=== PATIENT | male | born 1955 | race Caucasian/White ===

== ENCOUNTER 2016-12-05 07:04 | Day surgery (SDC) | payer BC ==
[~2016-12-05] VITALS: Ht 188 cm; Wt 153.0 kg
[~2016-12-05 07:04] MED LIST: ASPI325T PO; ATOR40TA64 PO; LIDOCAINE 1% (10mg/ml) 2ml SDV INJ ONE; LOSA100T44 PO; LR 1,000 ML IV SCH; METO50TA5 PO
--- OUTSIDE RECORDS SUMMARY | 2016-12-05 07:08 | XMS REPORT | Referral Summary ---
Author Author [facility] Organization [facility] Address Unknown Phone Unavailable Care Team Providers Care Pathologist Assistant Name Role Phone Milla Miller Primary Care Physician [phone] Encounter [facility] [id number] Date(s): 09/24/16 - 09/24/16 [facility] [address] [place] [id number] Discharge Diagnosis: Encounter for well adult exam with abnormal findings Discharge Diagnosis: Prostate cancer screening Discharge Diagnosis: Benign hypertension Discharge Diagnosis: CAD (coronary artery disease) Discharge Diagnosis: Hypercholesterolemia Discharge Diagnosis: Morbid obesity Discharge Disposition: 01-Home or Self Care Attending Physician: Keiko Garcia APRN Admitting Physician: Keiko Garcia APRN Vital Signs Most recent to 1 oldest [Reference Range]: Temperature Tympanic 36.6 degC [36.6-38.1 degC] (09/24/16 7:59 AM) Peripheral Pulse 68 bpm Rate [60-100 bpm] (09/24/16 7:59 AM) Blood Pressure 128/72 mmHg [90-140/60-90 mmHg] (09/24/16 7:59 AM) Problem List Condition Effective Dates Status Health Status Informant Ascending aorta Active dilation(Confirmed) Hypercholesterolemia Active (Confirmed) Morbid Active obesity(Confirmed) Encounter for well Active adult exam with abnormal findings(Confirmed) Allergies, Adverse Reactions, Alerts No Known Medication Allergies Medications aspirin 325 mg, Oral, Daily, 0 Refill(s) Start Date: 05/09/14 Status: Ordered atorvastatin 40 mg oral tablet 40 mg 1 tabs, Oral, Daily, # 90 tabs, 3 Refill(s), Pharmacy: [id number], 1 tabs Oral Daily Start Date: 09/24/16 Status: Ordered losartan 100 mg oral tablet 100 mg 1 tabs, Oral, Daily, # 90 tabs, 3 Refill(s), Pharmacy: [facility] [id number], 1 tabs Oral Daily Start Date: 09/24/16 Status: Ordered Metoprolol Tartrate 50 mg oral tablet 50 mg 1 tabs, Oral, BID, # 180 tabs, 3 Refill(s), Pharmacy: [facility] [id number], 1 tabs Oral BID Start Date: 09/24/16 Status: Ordered Results Chemistry Most recent to 1 oldest [Reference Range]: Sodium Lvl [135-144 140 mEq/L mEq/L] (09/24/16 8:45 AM) Potassium Lvl 4.9 mEq/L [3.5-5.2 mEq/L] (09/24/16 8:45 AM) Chloride [99-111 107 mEq/L mEq/L] (09/24/16 8:45 AM) CO2 [23-31 mEq/L] 26 mEq/L (09/24/16 8:45 AM) AGAP [3-20] 7 (09/24/16 8:45 AM) BUN [8-26 mg/dL] 22 mg/dL (09/24/16 8:45 AM) Glucose Lvl [70-99 98 mg/dL mg/dL] (09/24/16 8:45 AM) Creatinine Lvl 1.49 mg/dL [0.72-1.25 mg/dL] *HI* (09/24/16 8:45 AM) eGFR [>60 mL/min] 48 mL/min 1 *ABN* (09/24/16 8:45 AM) Calcium Lvl 9.4 mg/dL 2 [8.4-10.2 mg/dL] (09/24/16 8:45 AM) Albumin Lvl [3.4-4.8 4.3 gm/dL gm/dL] (09/24/16 8:45 AM) Total Protein 7.3 gm/dL [6.0-7.6 gm/dL] (09/24/16 8:45 AM) Globulin [1.8-4.0 3.0 gm/dL gm/dL] (09/24/16 8:45 AM) ALT [0-55 U/L] 57 U/L *HI* (09/24/16 8:45 AM) AST [5-34 U/L] 34 U/L (09/24/16 8:45 AM) Alk Phos [40-150 57 U/L U/L] (09/24/16 8:45 AM) Bili Total [0.2-1.2 0.7 mg/dL mg/dL] (09/24/16 8:45 AM) PSA (wihout Reflex 0.4 ng/mL 3 Free) [0.0-4.5 (09/24/16 8:45 AM) ng/mL] Chol [0-199 mg/dL] 191 mg/dL (09/24/16 8:45 AM) Trig [0-149 mg/dL] 74 mg/dL (09/24/16 8:45 AM) HDL [40-84 mg/dL] 45 mg/dL (09/24/16 8:45 AM) LDL [0-130 mg/dL] 131 mg/dL *HI* (09/24/16 8:45 AM) VLDL Cholesterol 15 mg/dL [0-28 mg/dL] (09/24/16 8:45 AM) Cardiac Risk 4.2 [0.0-5.7] (09/24/16 8:45 AM) Hgb A1c [4.1-5.6 %] 5.6 % (09/24/16 8:45 AM) eAvg Glucose 114.0 mg/dL (09/24/16 8:45 AM) 1Result Comment: Multiply eGFR results by 1.21 for race. 2Result Comment: Please note reference range change effective 09/19/2016. 3Result Comment: AUA PSA Best Practice Guidelines: Age-Adjusted PSA Values by Ethnic Group Age Range Asians - Caucasians Americans 40-49 0-2.0 0-2.0 0-2.5 50-59 0-3.0 0-4.0 0-3.5 60-69 0-4.0 0-4.5 0-4.5 70-79 0-5.0 0-5.5 0-6.5 Immunizations Given and Recorded Vaccine Date Status Refusal Reason tetanus/diphth/pertuss (Tdap) adult/adol 05/09/14 Given pneumococcal 23-polyvalent vaccine 09/24/16 Given Procedures Procedure Date Related Diagnosis Body Site Collection of venous blood by venipuncture 09/24/16 Cardiac catheterization1 2011 S/P ORIF (open reduction internal fixation) fracture 140-50% disease. No stents or angio. Social History Social History Type Response Smoking Status Former smoker; Type: Cigarettes; Started at age: 18; Stopped at age: 24 Assessment and Plan Extracted from: Title: Office Visit Note-WME/med ck Author: Keiko Garcia APRN Date: 09/24/16 Assessment/Plan 1.Encounter for well adult exam with abnormal findings Discussed general health maintenance and disease prevention. Pneumococcal vaccine given today. Labs as ordered. Encourage a healthy diet and decreasing portions. Recommend appointment with Dr. Chow to discuss pros and cons of colonoscopy. Ordered: Comprehensive Metabolic Panel Hemoglobin A1c Lipid Panel Prostate Specific Antigen 2.Benign hypertension Stable. Continue same. Continue to monitor blood pressure outside the office. Goal blood pressures less than 140/90. Plan follow-up in 6 months or sooner if medical needs arise. Plan CMP prior to next visit. Ordered: Comprehensive Metabolic Panel 3.CAD (coronary artery disease) Continue to follow with Dr. Villalba as recommended. Continue statinand aspirin. 4.Hypercholesterolemia Continue statin and aspirin. Lipids today. Ordered: Lipid Panel 5.Morbid obesity Encourage healthy diet. Screen for diabetes. Ordered: Hemoglobin A1c 6.Prostate cancer screening Prostate exam normal. Encourage patient to drink less fluids in the evening which will help with nocturia. It does not let us know. Ordered: Prostate Specific Antigen Need for pneumococcal vaccination
--- OUTSIDE RECORDS SUMMARY | 2016-12-05 07:08 | XMS REPORT | Referral Summary ---
Author Author [facility] Organization [facility] Address Unknown Phone Unavailable Care Team Providers Care Customer Response Representative Name Role Phone No PCP, States Primary Care Physician [phone] Encounter Date(s): 05/30/15 - 05/30/15 [facility] [address] [place] [address] Discharge Diagnosis: Morbid obesity Discharge Diagnosis: Coronary artery disease Discharge Diagnosis: Benign hypertension Discharge Diagnosis: Hypercholesterolemia Discharge Disposition: 01-Home or Self Care Attending Physician: Keiko Garcia APRN Admitting Physician: Keiko Garcia APRN Vital Signs Most recent to 1 oldest [Reference Range]: Temperature Tympanic 37 degC [36.6-38.1 degC] (05/30/15 1:41 PM) Peripheral Pulse 64 bpm Rate [60-100 bpm] (05/30/15 1:41 PM) Blood Pressure 122/86 mmHg [90-140/60-90 mmHg] (05/30/15 1:41 PM) Problem List Condition Effective Dates Status Health Status Informant Hypercholesterolemia Active (Confirmed) Morbid Active patient obesity(Confirmed) Allergies, Adverse Reactions, Alerts No Known Medication Allergies Medications aspirin 325 mg, Oral, Daily, 0 Refill(s) Start Date: 05/09/14 Status: Ordered atorvastatin 40 mg oral tablet 40 mg 1 tabs, Oral, Bedtime (once a day), # 90 tabs, 3 Refill(s), Pharmacy: [facility], 1 tabs Oral Bedtime (once a day) Start Date: 11/14/15 Status: Ordered losartan 100 mg oral tablet 100 mg 1 tabs, Oral, Daily, # 90 tabs, 3 Refill(s), Pharmacy: [facility], 1 tabs Oral Daily Start Date: 11/14/15 Status: Ordered Metoprolol Tartrate 50 mg oral tablet See Instructions, 1 TABS ORAL BID,X90 DAYS, # 180 tabs, 3 Refill(s), Pharmacy: [facility], 1 TABS ORAL BID,X90 DAYS Start Date: 11/14/15 Status: Ordered Results No data available for this section Immunizations Vaccine Date Refusal Reason tetanus/diphth/pertuss (Tdap) adult/adol 05/09/14 Procedures Procedure Date Related Diagnosis Body Site Cardiac catheterization1 2011 S/P ORIF (open reduction internal fixation) fracture 140-50% disease. No stents or angio. Social History Social History Type Response Smoking Status Former smoker; Type: Cigarettes; Started at age: 18; Stopped at age: 24 Assessment and Plan Extracted from: Title: Office Visit Note-CDM Author: Keiko Garcia APRN Date: Assessment/Plan 1.Benign hypertension Cont same. Lab another day fasting. We'll notify him of results and any medication changes. Discussed with patient scheduling colonoscopy for screening for colon cancer. He will consider and check with insurance coverage. Does not want set that up today. Will get flu shot at work. Not interested in Pneumovax Ordered: Office Visit Level 4 Est 84304 2.Coronary artery disease Recommend follow-up with cardiology as it is been a number of years. Appointment made with Dr. Villalba. Ordered: Office Visit Level 4 Est 21023 Hypercholesterolemia Fasting lipids and other day. Ordered: Office Visit Level 4 Est 65298 Morbid obesity Encourage healthy eating and exercise. Recommend 5 pound weight loss per month. Ordered: Office Visit Level 4 Est 16276 Orders: atorvastatin, 40 mg 1 tabs, Oral, Daily, # 90 tabs, 0 Refill(s), [id number], 1 tabs Oral Daily,x90 days lisinopril, 5 mg 1 tabs, Oral, Daily, # 90 tabs, 0 Refill(s), Pharmacy: [facility] 43801, 1 tabs Oral Daily,x90 days metoprolol, 50 mg 1 tabs, Oral, BID, # 180 tabs, 0 Refill(s), Pharmacy: [facility] 78406, 1 tabs Oral BID,x90 days
--- OUTSIDE RECORDS SUMMARY | 2016-12-05 07:08 | XMS REPORT | Referral Summary ---
Author Author [facility] Organization [facility] Address Unknown Phone Unavailable Care Team Providers Care Band Sawmill Operator Name Role Phone Tiffanie Cr Primary Care Physician [phone] Encounter Date(s): 05/30/15 - 05/30/15 [facility] [address] [place] [address] Discharge Diagnosis: Morbid obesity Discharge Diagnosis: Coronary artery disease Discharge Diagnosis: Benign hypertension Discharge Diagnosis: Hypercholesterolemia Discharge Disposition: 01-Home or Self Care Attending Physician: Keiko Garcia APRN Admitting Physician: eKiko Garcia APRN Vital Signs Most recent to [...] Daily, # 90 tabs, 0 Refill(s), Pharmacy: [facility] 96391, 1 tabs Oral Daily,x90 days Start Date: 05/30/15 Stop Date: 08/28/15 Status: Ordered lisinopril 5 mg oral tablet 5 mg 1 tabs, Oral, Daily, # 90 tabs, 0 Refill(s), Pharmacy: [facility] 78442, 1 tabs Oral Daily,x90 days Start Date: 05/30/15 Stop Date: 08/28/15 Status: Ordered Metoprolol Tartrate 50 mg oral tablet 50 mg 1 tabs, Oral, BID, # 180 tabs, 0 Refill(s), Pharmacy: [facility] 69790, 1 tabs Oral BID,x90 days Start Date: 05/30/15 Stop Date: 08/28/15 Status: Ordered Results No data available for [...] Pneumovax Ordered: Office Visit Level 4 Est 82480 2.Coronary artery disease Recommend follow-up with cardiology as it is been a number of years. Appointment made with Dr. Villalba. Ordered: Office Visit Level 4 Est 75486 Hypercholesterolemia Fasting lipids and other day. Ordered: Office Visit Level 4 Est 73338 Morbid obesity Encourage healthy eating and exercise. Recommend 5 pound weight loss per month. Ordered: Office Visit Level 4 Est 25225 Orders: atorvastatin, 40 mg 1 tabs, Oral, Daily, # 90 tabs, 0 Refill(s), Pharmacy: [facility] [id number], 1 tabs Oral Daily,x90 days lisinopril, 5 mg 1 tabs, Oral, Daily, # 90 tabs, 0 Refill(s), Pharmacy: [facility] 48125, 1 tabs Oral Daily,x90 days metoprolol, 50 mg 1 tabs, Oral, BID, # 180 tabs, 0 Refill(s), Pharmacy: [facility] 49030, 1 tabs Oral BID,x90 days
--- OUTSIDE RECORDS SUMMARY | 2016-12-05 07:08 | XMS REPORT | Referral Summary ---
Author Author [facility] Organization [facility] Address Unknown Phone Unavailable Care Team Providers Care Optical Manager Name Role Phone Tiffanie Cr Primary Care Physician [phone] Encounter Date(s): 07/25/15 - 07/25/15 [facility] [address] [place] [address] [place] [address] [place] Discharge Diagnosis: Old WI (myocardial infarction) Discharge Diagnosis: Obesity Discharge Diagnosis: Coronary heart disease Discharge Diagnosis: Sleep apnea in adult Discharge Diagnosis: Chronic kidney disease (CKD) stage G2/A1, mildly decreased glomerular filtration rate (GFR) between 60-89 mL/min/1.73 square meter and albuminuria creatinine ratio less than 30 mg/g Discharge Diagnosis: Essential hypertension Discharge Disposition: 01-Home or Self Care Attending Physician: Nabeel Villalba MD Admitting Physician: Nabeel Villalba MD Referring Physician: Keiko Garcia APRN Vital Signs Most recent to 1 oldest [Reference Range]: Peripheral Pulse 60 bpm Rate [60-100 bpm] (07/25/15 2:32 PM) Blood Pressure 144/96 mmHg [90-140/60-90 mmHg] *HI* (07/25/15 2:32 PM) Problem List Condition Effective Dates Status Health Status Informant Hypercholesterolemia Active (Confirmed) Morbid Active patient obesity(Confirmed) Allergies, Adverse Reactions, Alerts No Known Medication Allergies Medications aspirin 325 mg, Oral, Daily, 0 Refill(s) Start Date: 05/09/14 Status: Ordered atorvastatin 40 mg oral tablet 40 mg 1 tabs, Oral, Daily, # 90 tabs, 0 Refill(s), Pharmacy: [facility] [address]8572, 1 tabs Oral Daily,x90 days Start Date: 05/30/15 Stop Date: 08/28/15 Status: Ordered lisinopril 10 mg oral tablet 10 mg 1 tabs, Oral, Daily, # 90 tabs, 4 Refill(s), Pharmacy: [facility] 73437, 1 tabs Oral Daily Start Date: 07/25/15 Status: Ordered Metoprolol Tartrate 50 mg oral tablet 50 mg 1 tabs, Oral, BID, # 180 tabs, 0 Refill(s), Pharmacy: [facility] 72328, 1 tabs Oral BID,x90 days Start Date: 05/30/15 Stop Date: 08/28/15 Status: Ordered Results No data available for this section Immunizations Vaccine Date Refusal Reason tetanus/diphth/pertuss (Tdap) adult/adol 05/09/14 Procedures Procedure Date Related Diagnosis Body Site Cardiac catheterization2011 S/P ORIF (open reduction internal fixation) fracture 140-50% disease. No stents or angio. Social History Social History Type Response Smoking Status Former smoker; Type: Cigarettes; Started at age: 18; Stopped at age: 24 Assessment and Plan No data available for this section
--- OUTSIDE RECORDS SUMMARY | 2016-12-05 07:08 | XMS REPORT | Referral Summary ---
Author Author [facility] Organization [facility] Address Unknown Phone Unavailable Care Team Providers Care Survey Data Technician Name Role Phone No PCP, States Primary Care Physician [phone] Encounter [facility] [id number] Date(s): 11/14/15 - 11/14/15 [facility] [address] [place] [address] [place] [address] Discharge Diagnosis: Ascending aorta dilation Discharge Diagnosis: Hypercholesteremia Discharge Diagnosis: Essential hypertension Discharge Diagnosis: Coronary heart disease Discharge Disposition: -Home or Self Care Attending Physician: Nabeel Villalba MD Admitting Physician: Nabeel Villalba MD Referring Physician: Grady Cr MD Vital Signs Most recent to 1 oldest [Reference Range]: Peripheral Pulse 64 bpm Rate [60-100 bpm] (11/14/15 2:37 PM) Blood Pressure 134/82 mmHg [90-140/60-90 mmHg] (11/14/15 2:37 PM) Problem List Condition Effective Dates Status Health Status Informant Hypercholesterolemia Active (Confirmed) Morbid Active patient obesity(Confirmed) Allergies, Adverse Reactions, Alerts No Known Medication Allergies Medications aspirin 325 mg, Oral, Daily, 0 Refill(s) Start Date: 05/09/14 Status: Ordered atorvastatin 40 mg oral tablet 40 mg 1 tabs, Oral, Bedtime (once a day), # 90 tabs, 3 Refill(s), Pharmacy: [facility], 1 tabs Oral Bedtime (once a day) Start Date: 11/14/15 Status: Ordered losartan 100 mg oral tablet 100 mg 1 tabs, Oral, Daily, # 90 tabs, 3 Refill(s), Pharmacy: [facility], 1 tabs Oral Daily Start Date: 11/14/15 Status: Ordered Metoprolol Tartrate 50 mg oral tablet See Instructions, 1 TABS ORAL BID,X90 DAYS, # 180 tabs, 3 Refill(s), Pharmacy: [facility], 1 TABS ORAL BID,X90 DAYS [...] and Plan Extracted from: Title: Office Visit Note Author: Nabeel Villalba MD Date: 11/14/15 Assessment/Plan 1.Coronary heart disease Ordered: Echo, 2-D + Doppler + Color Flow Return to Clinic 2.Ascending aorta dilation Ordered: Echo, 2-D + Doppler + Color Flow Return to Clinic 3.Hypercholesteremia Ordered: Echo, 2-D + Doppler + Color Flow Return to Clinic 4.Essential hypertension Discussion: We discussed the implications of adilated somewhat aneurysmal ascending aorta. We advised him of the dimensions of the aorta and the threshold levels forgreater risk fordissection (55 mm). Since A2 receptor chris seem to be more powerful for protection of the aorta we changed his lisinopril to losartan 100 mg daily. We advised him to continue the beta chris. We encouraged him to do modest physical activity but to avoid extremes ofaerobic or isometric stress. Orders: atorvastatin, 40 mg 1 tabs, Oral, Bedtime (once a day), # 90 tabs, 3 Refill(s), Pharmacy: [facility], 1 tabs Oral Bedtime (once a day) losartan, 100 mg 1 tabs, Oral, Daily, # 90 tabs, 3 Refill(s), Pharmacy: [facility], 1 tabs Oral Daily metoprolol, See Instructions, 1 TABS ORAL BID,X90 DAYS, # 180 tabs, 3 Refill(s ), Pharmacy: [facility], 1 TABS ORAL BID,X90 DAYS Referrals to Other Providers Referred by: Nabeel Villalba MD
--- OUTSIDE RECORDS SUMMARY | 2016-12-05 07:08 | XMS REPORT | Referral Summary ---
Author Author [facility] Organization [facility] Address Unknown Phone Unavailable Care Team Providers Care It Support Technician Name Role Phone Drea Clarke Primary Care Physician [phone] Encounter [facility] [id number] Date(s): 11/05/15 - 11/05/15 [facility] [address] [place] [address] Discharge Disposition: 01-Home or Self Care Attending Physician: Nabeel Villalba MD Admitting Physician: Nabeel Villalba MD Vital Signs Most recent to 1 oldest [Reference Range]: Peripheral Pulse 64 bpm Rate [60-100 bpm] (11/05/15 11:30 AM) Blood Pressure 156/93 mmHg [90-140/60-90 mmHg] *HI* (11/05/15 11:30 AM) Problem List Condition Effective Dates Status Health Status Informant Hypercholesterolemia Active (Confirmed) Morbid Active patient obesity(Confirmed) Allergies, Adverse Reactions, Alerts No Known Medication Allergies Medications aspirin 325 mg, Oral, Daily, 0 Refill(s) Start Date: 05/09/14 Status: Ordered atorvastatin 40 mg oral tablet See Instructions, 1 TABS ORAL DAILY,X90 DAYS, # 90 tabs, 1 Refill(s), eRx: [facility] [id number], 1 TABS ORAL DAILY,X90 DAYS Start Date: 11/05/15 Status: Ordered lisinopril 10 mg oral tablet 10 mg 1 tabs, Oral, Daily, # 90 tabs, 4 Refill(s), Pharmacy: [facility] 78399, 1 tabs Oral Daily Start Date: 07/25/15 Status: Ordered Metoprolol Tartrate 50 mg oral tablet See Instructions, 1 TABS ORAL BID,X90 DAYS, # 180 tabs, eRx: [facility] [id number], 1 TABS ORAL BID,X90 DAYS Start Date: 11/05/15 Status: Ordered Results No data available for [...]
--- OUTSIDE RECORDS SUMMARY | 2016-12-05 07:08 | XMS REPORT | Referral Summary ---
Author Author [facility] Organization [facility] [place] Address Unknown Phone Unavailable Care Team Providers Care Neurology Director Name Role Phone Drea Clarke Primary Care Physician [phone] Encounter [facility] Date(s): 10/02/15 - 10/02/15 [facility] [place] [address] [place], [place] [address] Discharge Disposition: 01-Home or Self Care Attending Physician: Beni Monroe MD Admitting Physician: Beni Monroe MD Referring Physician: Nabeel Villalba MD Vital Signs No data available for this section Problem List Condition Effective Dates Status Health Status Informant Hypercholesterolemia Active (Confirmed) Morbid Active patient obesity(Confirmed) Allergies, Adverse Reactions, Alerts No Known Medication Allergies Medications aspirin 325 mg, Oral, Daily, 0 Refill(s) Start Date: 05/09/14 Status: Ordered atorvastatin 40 mg oral tablet 40 mg 1 tabs, Oral, Daily, # 90 tabs, 0 Refill(s), Pharmacy: [facility] 34173, 1 tabs Oral Daily,x90 days Start Date: 05/30/15 Stop Date: 08/28/15 Status: Ordered lisinopril 10 mg oral tablet 10 mg 1 tabs, Oral, Daily, # 90 tabs, 4 Refill(s), Pharmacy: [facility] 68615, 1 tabs Oral Daily Start Date: 07/25/15 Status: Ordered Metoprolol Tartrate 50 mg oral tablet 50 mg 1 tabs, Oral, BID, # 180 tabs, 0 Refill(s), Pharmacy: [facility] 16814, 1 tabs Oral BID,x90 days Start Date: [...]
--- OUTSIDE RECORDS SUMMARY | 2016-12-05 07:08 | XMS REPORT | Referral Summary ---
Author Author [facility] Organization [facility] Address Unknown Phone Unavailable Encounter [facility] [id number] Date(s): 06/06/16 - 06/06/16 [facility] [address] [place], [place] [address] Discharge Diagnosis: Right knee DJD Discharge Disposition: 01-Home or Self Care Attending Physician: Fer Torre MD Admitting Physician: Fer Torre MD Vital Signs Most recent to 1 oldest [Reference Range]: Respiratory Rate 18 br/min [14-20 br/min] (06/06/16 8:47 AM) Problem List Condition Effective Dates Status Health Status Informant Hypercholesterolemia Active (Confirmed) Morbid Active patient obesity(Confirmed) Allergies, Adverse Reactions, Alerts No Known Medication Allergies Medications aspirin 325 mg, Oral, Daily, 0 Refill(s) Start Date: 05/09/14 Status: Ordered atorvastatin 40 mg oral tablet See Instructions, TAKE 1 TABLET BY MOUTH DAILY, # 90 tabs, eRx: [facility] , TAKE 1 TABLET BY MOUTH DAILY Start Date: 04/22/16 Status: Ordered losartan 100 mg oral tablet 100 mg 1 tabs, Oral, Daily, # 90 tabs, 3 Refill(s), Pharmacy: [facility], 1 tabs Oral Daily Start Date: 11/14/15 Status: Ordered meloxicam 15 mg oral tablet 15 mg 1 tabs, Oral, Daily, # 30 tabs, 0 Refill(s), Pharmacy: [facility] [id number], 1 tabs Oral Daily Start Date: 06/06/16 Status: Ordered Metoprolol Tartrate 50 mg oral tablet See Instructions, TAKE 1 TABLET BY MOUTH TWICE DAILY, # 180 tabs, eRx: [facility] [id number], TAKE 1 TABLET BY MOUTH TWICE DAILY Start Date: 04/22/16 Status: Ordered Results No data available for [...]
--- OUTSIDE RECORDS SUMMARY | 2016-12-05 07:08 | XMS REPORT | Continuity of Care Document ---
Author Author [facility] Organization [facility] Address Unknown Phone Unavailable Allergies Active Description Code Type Severity Reaction Onset Reported/Identified Relationship to Patient Clinical Status Yes No Known Medication Allergies NKMA N/A N/A 05/09/2014 Medications Problems Procedures Results Test Result Range Comprehensive Metabolic Panel (CMP) - 09/24/16 08:45 Albumin 4.3 g/dL 3.4-4.8 Alkaline Phosphatase 57 U/L 40-150 ALT (SGPT) 57 U/L 0-55 Anion Gap 7 NA 3-20 AST (SGOT) 34 U/L 5-34 Bilirubin Total 0.7 mg/dL 0.2-1.2 BUN 22 mg/dL 8-26 Calcium 9.4 mg/dL 8.4-10.2 Chloride 107 mEq/L 99-111 CO2 26 mEq/L 23-31 Creatinine 1.49 mg/dL 0.72-1.25 Globulin 3.0 g/dL 1.8-4.0 Glucose 98 mg/dL 70-99 Potassium 4.9 mEq/L 3.5-5.2 Protein 7.3 g/dL 6.0-7.6 Sodium 140 mEq/L 135-144 Lipid Panel - 09/24/16 08:45 Cardiac Risk 4.2 0.0-5.7 Cholesterol 191 mg/dL 0-199 HDL Cholesterol 45 mg/dL 40-84 LDL Cholesterol 131 mg/dL 0-130 Triglycerides 74 mg/dL 0-149 VLDL Cholesterol 15 mg/dL 0-28 eGFR - 09/24/16 08:45 eGFR 48 mL/min >60 PSA - 09/24/16 08:45 PSA 0.4 ng/mL 0.0-4.5 Hemoglobin A1C - 09/24/16 08:45 Hemoglobin A1C 5.6 % 4.1-5.6 Estimated Average Glucose - 09/24/16 08:45 Estimated Average Glucose 114.0 mg/dL Encounters ACCT No. Visit Date/Time Discharge Status Pt. Type Provider Facility Loc./Unit Complaint [id number] 11/19/2016 14:02:00 2016 23:59:00 DIS Outpatient Nabeel Villalba [facility] New Card 1 year chiqui [id number] 10/22/2016 13:49:00 2016 23:59:00 DIS Outpatient Nestor Man [facility] New Surg CONSULT FOR COLONOSCOPY PER ASHLEY [id number] 09/24/2016 07:33:00 2016 23:59:00 DIS Outpatient Ashley Garcia [facility] New MED CK [id number] 06/06/2016 08:16:00 2015 23:59:00 DIS Outpatient Fer Torre [facility] FC Ortho TCPA RT KNEE PAIN/SWELLING [id number] 11/14/2015 14:01:00 2015 23:59:00 DIS Outpatient Nabeel Villalba [facility] New Card FOLLOW UP AFTER EDITA AND O2 MONITOR [id number] 11/05/2015 10:17:00 2015 23:59:00 DIS Outpatient Nabeel Villalba [facility] Mur Card EDITA VILLALBA 149KG 187CM [id number] 10/02/2015 14:23:00 2015 23:59:00 DIS Outpatient Beni Monroe [facility] Sleep CP DR VILLALBA REF G47.33 [id number] 07/25/2015 14:27:00 2014 23:59:00 DIS Outpatient Nabeel Villalba [facility] New Card MPV/GET EST/CAD/WILLIAM [id number] 07/25/2015 12:39:00 ACT Outpatient Nabeel Villalba [facility] Mur Card ekg E78.2 mariluz
[2016-12-05 07:26] VITALS: BP 130/70; PULSE 58; RESP 15; TEMP 98; O2SAT 93; Ht 188 cm; Wt 153.0 kg
[2016-12-05 08:02] VITALS: PULSE 57
--- NOTE | 2016-12-05 08:52 | ANESPREOP ---
Anesthesia Record Date and Time DATE: 12/05/16 TIME: 08:50 Pre-Op Diagnosis crcs Proposed Surgical Procedure COLONOSCOPY Allergies: Coded Allergies: No Known Allergies (Unverified , 12/05/16) Ht/Wt/BMI Height: 6 ' 2.00 " Weight: 153.000 kg BMI: 43.3 kg/m2 Vital Signs Date Time Temp Pulse Resp B/P Pulse Ox O2 Delivery O2 Flow Rate FiO2 12/05/16 08:02 57 12/05/16 07:26 98.0 15 130/70 93 Room Air Medications Inpatient Medications Current Medications Medications (Trade) Dose Ordered Sig/Brittny Start Time Stop Time Status Last Admin Dose Admin Lactated Ringer's (Lactated Ringers) 1,000 ml @ 30 mls/hr Q24H 12/05/16 07:00 12/05/16 08:19 30 MLS/HR Aspirin (Aspirin) 325 Mg Tablet, 1 TAB PO DAILY, (Reported) Last Taken: on 12/01/16 Atorvastatin Calcium (Atorvastatin Calcium) 40 Mg Tablet, 1 TAB PO DAILY, (Reported) Last Taken: on 12/04/16 1900 Losartan Potassium (Losartan Potassium) 100 Mg Tablet, 1 TAB PO DAILY, (Reported) Last Taken: on 12/04/16 1900 Metoprolol Tartrate (Metoprolol Tartrate) 50 Mg Tablet, 1 TAB PO BID, (Reported) Last Taken: on 12/05/16 0600 Currently on Beta Dina: Yes Beta Dina Last Taken: 12/05/16 0600 Medical/Surgical History Anesthesia PMH: Reports: *Hypertension (ON MEDS ), Obesity, Denies: Anesthesia Reactions (NO AIRWAY ISSUES), Arthritis, Cancer, Clotting Problems, Glaucoma, Malignant Hyperthermia, Sleep Apnea Smoking Status: Former smoker Has pt. smoked today?: No Use Chewing Tobacco?: No Second Hand Exposure: No Substance Use Type: does not use Substance last used: unknown Alcohol Intake: a few times a week Last Drink: unknown Past Surgical History Orthopedic Surgeries: Yes - LEFT HIP REPLACEMENT Abdominal Surgeries: Genitourinary Surgeries: Cardiac Surgeries: Yes - HEART CATH Endocrine Surgeries: Reproductive Surgeries: Neurological Surgeries: Ear Surgeries: Nose Surgeries: Throat Surgeries: Other Surgeries: Anesthesia Adverse Reactions: FOUND none Family Hx of Anesthesia Advers: none Hx of Motion Sickness: No Pertinent Findings EKG Rhythm: Sinus Rhythm Physical Exam Respiratory: Bilat breath sounds equal, Lungs clear Cardiovascular: FOUND Regular rate, rhythm, FOUND No murmur Airway Assessment Mallampati Score: I TMD: 2 Fingerbreadths Neck Extension: Fair Overall Assessment: May Be Diff Mask Vent., May Be Diff Intubation ASA: 3 Plan Anesthesia Plan: TIVA Discussion Discussed risks/options/alternatives of anesthesia and questions answered. Patient consents. Nursing pain assessment noted. Present: Spouse Attestation Statement Prior to the delivery of any anesthetic medication, I examined the patient, developed the plan, obtained the patient's consent and discussed the risk and benefits of the procedure with the patient/guardian. BRIAN PETERSON STOCKBR[employer]ER Dec 05, 2016 08:52
[2016-12-05] MEDS ORDERED: LIDOCAINE 1% (10mg/ml) 2ml SDV ONE (09:11)
[2016-12-05] MEDS ORDERED: PROPOFOL 500mg 50 ML IV ONE (09:11)
[2016-12-05 09:50] VITALS: BP 127/69; PULSE 60; RESP 20; TEMP 98.7; O2SAT 95
--- NOTE | 2016-12-05 10:00 | ANESPO ---
Post-Op Note Date 12/05/16 Time: 09:59 Status Pt Participated in Evaluation: Pt participated in person Vital Signs Date Time Temp Pulse Resp B/P Pulse Ox O2 Delivery O2 Flow Rate FiO2 12/05/16 08:02 57 12/05/16 07:26 98.0 15 130/70 93 Room Air Respiratory Function: Airway patent, Regular respirations Cardiovascular Function: Regular pulse Mental Status: Alert/oriented Pain Level Intensity: 0 (0) Hydration: Taking po fluids, IV infusing Complications during Recovery None apparent Post-Anesthesia Notes pt. tyol. well Follow-Up Instructions Instructions Per Surgeon Additional Information none BRIAN PETERSON CRNA Dec 05, 2016 10:00
[2016-12-05 10:05] VITALS: BP 135/74; PULSE 58; RESP 22; O2SAT 96
[2016-12-05 10:20] VITALS: BP 125/68; PULSE 57; RESP 18
--- NOTE | 2016-12-10 08:36 | OPNOTEF ---
DATE OF SERVICE 12/05/2016 SURGEON Nestor Chow MD PREOPERATIVE DIAGNOSIS Colorectal cancer surveillance. POSTOPERATIVE DIAGNOSIS Colorectal cancer surveillance, polyp x1 within ascending colon. PROCEDURE Colonoscopy with polypectomy via cold biopsy technique. ANESTHESIA TIVA BRIEF HISTORY/INDICATIONS Mr. Shin is a 61-year-old gentleman who presents to [facility] to undergo a colonoscopy to serve as a portion of his overall colorectal cancer surveillance. For completeness please refer to notes included in the patient's chart. FINDINGS Upon colonoscopy there was no evidence for angiodysplastic lesions, diverticula or paulo malignancies. The patient was found to have a single polyp within the ascending colon that was on the order of about 5-6 mm in diameter and was removed in its entirety via cold biopsy technique. DESCRIPTION OF PROCEDURE After informed consent was obtained, the patient was brought to the endoscopy suite and placed on the table in left lateral decubitus position. The patient subsequently underwent total intravenous anesthesia by the nurse forming operator per my request. A formal time-out was then completed. Next, a digital rectal examination was performed. Normal sphincter tone. No rectal masses were appreciated. An Olympus colonoscope was inserted in the anus and advanced through the lumen of the colon under direct visualization at all times until the cecum was ascertained. Triangulation of the teniae coli, ileocecal valve and appendiceal lumen were all visualized. The scope was then slowly withdrawn. Within the mid ascending colon, patient was found to have a polyp on the order of about 5-6 mm in diameter. This polyp was grasped and removed in its entirety via cold biopsy technique. Colonoscope was then continued to be withdrawn, again while maintaining visualization of the lumen at all times. As stated above, there was no evidence for angiodysplastic lesions, diverticula or paulo malignancies. Once the colonoscope was withdrawn back into the rectal vault, a J-maneuver was then performed. No worrisome perianal pathology was noted. Scope was allowed to straighten and withdrawn through the anal verge. The patient tolerated the procedure without difficulty and was sent back to the preop area in stable condition. We will await the biopsy results from today's single polypectomy and will proceed accordingly with further recommendations thereafter. CHIDI
== END 2016-12-05 10:32 | disposition home or self-care (01) ==
LOC: SCU 07:04
PROVIDERS: ATTEND Surgery
DX: Z12.11 Encounter for screening for malignant neoplasm of colon (principal); D12.2 Benign neoplasm of ascending colon
CPT/HCPCS: 45380; J2704; J7120